=== PATIENT | male | born 1980 | race Caucasian/White ===

== ENCOUNTER 2022-04-14 06:29 | Day surgery (SDC) | payer BC ==
[2022-04-13 08:46] LABS: Absolute Lymphocytes (CBC) 1.9 K/uL (0.7-4.9); Hematocrit 45.1 % (39.6-49.0); Lymphocytes % 37.8 % (15.3-44.8); MCV 92.9 fL (80-100); MPV 9.7 fL (7.6-11.3); RBC Red Blood Cell Count 4.85 M/uL (4.33-5.43)
[2022-04-13 08:57] LABS: Potassium 4.5 mmol/L (3.5-5.1)
--- NOTE | 2022-04-13 09:03 | RAD REPORT ---
EXAM DESCRIPTION: RAD - Chest Pa And Lat (2 Views) - 04/13/2022 8:35 am CLINICAL HISTORY: Pre op pending cholecystectomy Chest pain. COMPARISON: No comparisons FINDINGS: The lungs are clear. The heart is normal in size. No displaced fractures. IMPRESSION: No acute or concerning finding suspected.
--- NOTE | 2022-04-13 18:10 | EKG ---
Test Date: 2022-04-13 Test Time: 08:27:28 Paradichlorobenzene Machine Operator: RON MEASUREMENT RESULTS: Intervals: Rate: 62 MN: 150 QRSD: 100 QT: 358 QTc: 363 Moro: P: 38 MN: 150 QRS: 64 T: 16 INTERPRETIVE STATEMENTS: Normal sinus rhythm Normal ECG No previous ECG available for comparison Electronically Signed On 04-13-22 18:10:16 PROJECT MANAGER SENIOR by Jayme Cuellar
[2022-04-14] MEDS ORDERED: Ringers Lactate 1,000 ML IV ONE ×2 (06:54→08:37)
[2022-04-14] MEDS ORDERED: CEFOXITIN SODIUM 1 GM/VIAL ONE (06:54)
[2022-04-14] MEDS ORDERED: LIDOCAINE 2% MPF 5 ML VIAL ONE (07:11)
[2022-04-14] MEDS ORDERED: propofoL 200 MG/20 ML VIAL IV ONE (07:11)
[2022-04-14] MEDS ORDERED: ROCURONIUM 50 MG/5 ML VIAL IV ONE (07:11)
[2022-04-14] MEDS ORDERED: dexAMETHasone 10 MG/ML VIAL ONE (07:11)
[2022-04-14] MEDS ORDERED: FENTANYL CITR 100 MCG/2 ML ONE (07:11)
[2022-04-14] MEDS ORDERED: KETOROLAC 30 MG/ML INJ ONE (07:12)
[2022-04-14] MEDS ORDERED: MIDAZOLAM HCL 2 MG/2 ML INJ ONE (07:12)
[2022-04-14] MEDS ORDERED: ONDANSETRON 4 MG/2 ML VIAL ONE (07:12)
[2022-04-14] MEDS ORDERED: NS 0.9% VIAL 10 ML ONE (08:03)
[2022-04-14] MEDS ORDERED: NEOSTIGMINE 1 MG/ML -5 ML ONE (08:35)
[2022-04-14] MEDS ORDERED: GLYCOPYRROLATE 0.2 MG/ML SYR ONE (08:35)
--- NOTE | 2022-04-14 08:43 | P.OP ---
Date of Service: 04/14/22 Preop diagnosis: Chronic cholecystitis, biliary dyskinesia Postop diagnosis: Same with adhesions right upper quadrant Procedure performed: Lap sherita, lysis of adhesions Surgeon: Kristofer Last MD Manufacturing Quality Manager: Miriam CHEUNG Estimated blood loss: Minimal Specimen: Gallbladder Findings: As above Anesthesia: General Complications: None Drains: None Fluids and blood products: Nonapplicable Disposition: Recovery room Operative note: Patient brought to the OR and placed in the supine position. General anesthesia begun. Patient prepped and draped in the usual sterile fashion. Marcaine 0.5% infiltrated locally. 15 blade used to make a 1 cm supraumbilical midline incision. Subcutaneous tissue divided and bleeding contr olled cautery. Fascia identified and divided. #1 Vicryl stay suture placed. Peritoneal cavity entered with sharp and blunt dissection. 12 mm trocar placed into the peritoneal cavity under direct vision. Pneumoperitoneum established. Laparoscopy revealed some adhesions in the right upper quadrant, omental in nature. 5 mm trocar placed in the epigastric region just to the right of midline. And 2 5 mm trochars placed in the right subcostal region. The gallbladder had some adhesions as well. LigaSure used to divide all the adhesions. Fundus of the gallbladder retracted superiorly and infundibulum identified and retracted inferolaterally. Cystic duct and cystic artery clearly identified with blunt dissection. Clips placed both structures divided. Cautery used to remove the gallbladder from the liver bed. Bleeding on the liver bed controlled with cautery. Gallbladder retrieved through the umbilicus via Endo Catch bag. Right upper quadrant irrigated and effluent clear. There was no evidence of bleeding or bile leakage appreciated. All trochars removed under direct vision. Stay sutures tied to each other to reapproximate the fascial defect. Subcutaneous was irrigated and bleeding controlled with cautery. 3-0 chromic used to reapproximate subcutaneous tissue as well as the skin. Sterile dressing applied. Patient awakened and taken to recovery room in good general condition. CC: Dr. Vega's office
[2022-04-14] MEDS ORDERED: HYDROCODONE/APAP 7.5/325 MG TAB PO PRN (08:46)
[2022-04-14 09:27] VITALS: O2SAT 100
[2022-04-14] MEDS ORDERED: HYDROCODONE/APAP 7.5/325 MG TAB ONE (09:48)
[2022-04-14 10:06] VITALS: BP 126/71; TEMP 97.7
== END 2022-04-14 10:45 | disposition home or self-care (01) ==
LOC: OR 06:29
PROVIDERS: ATTEND Surgery
PROC: 0FT44ZZ Resection of Gallbladder, Percutaneous Endoscopic Approach (ICD-10-PCS; principal; 2022-04-14 07:30)
DX: K81.1 Chronic cholecystitis (principal); K82.8 Other specified diseases of gallbladder
CPT/HCPCS: 93005; 85025; 80048; 36415; 88304; 71046; 47562; J2704; J2001; J2250; J3010; J1100; A4216; J2710; J7120 ×2; J0694; J2405